=== PATIENT | female | born 1995 | race Caucasian/White ===

== ENCOUNTER → 2016-12-08 | Outpatient (CLI) | payer OTHER ==
[~2016-12-08] MED LIST: ORPH100T2 PO; SERT100T12 PO
--- NOTE | 2016-12-09 08:17 | DI ---
Indication: ITS.REASON: M54.9 PROCEDURE: MRI LUMBAR SPINE W/O CONTRAST: Encounter: Initial Comparison: None Technique: Multiplanar multisequence MR imaging of the lumbar spine was performed without contrast. Findings: Alignment lumbar spine is mildly straightened. No acute fracture or subluxation. Bone marrow signal intensity is normal. Conus medullaris terminates normally at L1. The paraspinal soft tissues are within normal limits. Segmental analysis: L1-L2: Normal L2-L3: Normal L3-L4: Normal L4-L5: Disk desiccation with a small central protrusion and high intensity zone. Prior posterior decompression. No significant neural foraminal stenosis. Minimal degenerative facet change. L5-S1: Annular tear with a high intensity zone. No central canal stenosis. Minimal central bulging. No neural foraminal stenosis. Impression: Prior surgery with small annular tears in the disks at L4-L5 and L5-S1. .
== END ==
LOC: IMA 16:26
PROVIDERS: ATTEND Family Medicine
DX: M51.36 Other intervertebral disc degeneration, lumbar region (principal); M51.37 Other intervertebral disc degeneration, lumbosacral region; Z98.890 Other specified postprocedural states; M54.9 Dorsalgia, unspecified

== ENCOUNTER 2017-11-03 07:11 | Inpatient (IN) ==
[2017-11-03] MEDS ORDERED: CITRIC ACID/SODIUM CITRATE 30ml PO ONE (07:34)
[2017-11-03] MEDS ORDERED: CEFAZOLIN PREMIX (MC ONLY) 2 GM/50 ML BAG IV ONE (07:34)
[2017-11-03] MEDS ORDERED: NOZIN NASAL SWAB NAS ONE (07:34)
[2017-11-03] MEDS ORDERED: FAMOTIDINE PB 20 MG/50 ML BAG IV ONE (07:34)
[2017-11-03] MEDS ORDERED: SALINE FLUSH 10ml SYRINGE ONE (07:52)
[2017-11-03] MEDS ORDERED: EPHEDRINE 50mg/ml INJECTION ONE (07:52)
[2017-11-03] MEDS ORDERED: FentaNYL 100 MCG/2 ML INJECTION ONE (07:54)
[2017-11-03] MEDS ORDERED: AZITHROMYCIN IV 500 MG in NS 250ml 250 ML IV ONE (08:00)
[2017-11-03] MEDS: LR 1,000 ML IV SCH ×3 (08:10→12:55)
[2017-11-03 08:17] VITALS: BMI 28.1
[2017-11-03] MEDS ORDERED: ONDANSETRON 4 MG/2 ML INJECTION IVP PRN (08:53)
[2017-11-03] MEDS ORDERED: DiphenhydrAMINE 50 MG/ML INJECTION IVP PRN (08:53)
[2017-11-03] MEDS ORDERED: NALBUPHINE 10 MG/ML INJECTION IVP PRN (08:53)
[2017-11-03] MEDS ORDERED: NALOXONE 2 MG/2 ML INJECTION PFS IVP PRN (08:53)
--- NOTE | 2017-11-03 08:53 | Anesthesia Preoperative Report ---
Anesthesia Epidural/Spinal Rec - Date and Time Date: 11/03/17 Preoperative Diagnosis: previous c section Procedure: Plan: Spinal - Vital Signs Vital Signs: Temperature 98.0 F 11/03/17 08:27 Pulse Rate 94 11/03/17 08:27 Respiratory Rate 16 11/03/17 08:27 Blood Pressure 118/64 11/03/17 08:27 Pulse Oximetry 100 11/03/17 08:27 /Para: P:1 - Medictaions & Allergies Inpatient Medications: Current Medications Lactated Ringer's (Lactated Ringers) 1,000 mls @ 999 mls/hr IV .Q1H1M MAR Last Admin: 11/03/17 08:10 Dose: 999 mls/hr Azithromycin 500 mg/ Sodium (Chloride) 250 mls @ 250 mls/hr IV O ONE Stop: 11/03/17 08:59 Allergies/Adverse Reactions: Allergies Allergy/AdvReac Type Severity Reaction Status Date / Time diazepam Allergy Unknown DEPRESSED Verified 05/05/17 21:28 MOOD latex Allergy Unknown RASH TO Verified 05/05/17 21:28 HANDS - Home Medications Home Medications: Home Medications Medication Instructions Recorded Confirmed Type Acetaminophen [Tylenol] 650 mg Q6H PRN 05/06/17 11/03/17 History DiphenhydrAMINE [Benadryl] 1 cap PO Q4H PRN 05/06/17 11/03/17 History Vit No.124/Iron/Folic 1 each PO DAILY 05/06/17 11/03/17 History [ Vitamin Tablet] - Medical History Respiratory: Reports: Asthma (not recently), Pneumonia (walking pneumonia) DENIES: Sleep Apnea Neuro/Musculoskeletal: Reports: Back Problems, Depression (bipolar) Other History: Reports: Now, Other (14 weeks ) - Surgical History HEENT Surgeries: Reports: Ear Surgery (tubes) GI Surgery/Treatments: Reports: Appendectomy (2nd trimester this ) Surgery/Treatment: REPORT: Other (Kidney infection) Musculoskeletal Surgery/Tx: Reports: Orthopedic Surgery (laminectomy, dysectomy) Reproductive Surgery/Treatment: Reports: Section Hx Family Anesthesia Reaction: No - Social History Smoking Status: Former smoker (quit 1 month ago) Packs per day: 1 Pack-years: 5 Time spent discussing smoking cessation with patient: 3 to 10 minutes Substance Use Type: does not use Alcohol Intake Frequency: does not drink Hx Chewing Tobacco Use: No - Pertinent Findings Lab Data: CBC and BMP 11/03/17 07:54 - Physical Exam Respiratory Exam: lungs clear Cardiovascular Exam: regular rate and rhythm, no murmur - Airway Assessment Mallampati Score: II TMD: 3 Fingerbreadths Neck Extension: good Overall Assessment: no airway concerns - ASA ASA Score: 2 - Discussion Discussion: Discussed risks/options/alternatives of anesthesia and questions answered. Patient consents. Nursing pain assessment noted. Anesthesia Discussion: spouse Attestation Statement: Prior to the delivery of any anesthetic medication, I examined the patient, developed the plan, obtained the patient's consent and discussed the risk and benefits of the procedure with the patient/guardian.
[2017-11-03] MEDS ORDERED: OXYTOCIN BOLUS BAG 30 UNIT/500 ML ML IV SCH (10:00)
[2017-11-03] MEDS ORDERED: RHOPHYLAC - PHARMACY CONSULT MC ONE (10:46)
[2017-11-03] MEDS ORDERED: DiphenhydrAMINE 25 MG CAPSULE PO PRN (10:46)
[2017-11-03] MEDS ORDERED: HYDROCORTISONE 2.5% CREAM 30gm RECTALLY PRN (10:46)
[2017-11-03] MEDS ORDERED: CALCIUM CARBONATE Chewable 500mg TABLET PO PRN (10:46)
[2017-11-03] MEDS ORDERED: OXYTOCIN DRIP 30 UNIT/500 ML ML IV SCH (10:46)
[2017-11-03] MEDS ORDERED: SIMETHICONE 80 MG CHEWABLE TABLET PO PRN (10:46)
[2017-11-03] MEDS ORDERED: ACETAMINOPHEN 500 MG TABLET PO PRN (10:46)
[2017-11-03] MEDS: D5LR 1,000 ML IV SCH ×2 (10:48→22:59)
[2017-11-03] MEDS: IBUPROFEN 800 MG TABLET PO SCH ×4 (12:54→23:17)
[2017-11-03] MEDS: HYDROCODONE/APAP 5mg/325mg TABLET PO PRN ×2 (14:12→20:16)
[2017-11-03] MEDS: SIMETHICONE 80 MG CHEWABLE TABLET PO SCH ×3 (14:12→22:59)
--- NOTE | 2017-11-03 14:13 | Operative Note ---
DATE OF OPERATION 11/03/2017 PREOPERATIVE DIAGNOSIS Term , repeat elective . POSTOPERATIVE DIAGNOSIS Term , repeat elective . PROCEDURE Repeat low transverse section. SURGEON Hilda Dey MD STRADDLE BUG OPERATOR Ryan Edmond, Molecular Biologist ANESTHESIA Spinal, epidural anesthesia EBL 700 mL DESCRIPTION OF PROCEDURE Ms. Balderrama was brought to the OR and given regional analgesia to good effect. She initially had a spinal placed, however, we were not able to obtain symmetric bilateral levels so then the control operator flow coat placed an epidural and this was raised to good surgical levels. She was then placed on the OR table in a supine position with left lateral displacement. A Lainez catheter was placed to dependent drain. The abdomen was prepped and draped in the usual sterile fashion. We made a Pfannenstiel incision through the patient's prior scar. This was carried down to fascia. Fascia was incised transversely. Fascia was then tented up. This was bluntly and sharply dissected free of rectus muscles. Rectus muscles were bluntly divided. Peritoneum was tented up and entered sharply. This was extended vertically. The bladder blade was then inserted. The bladder was noted to be well below our area of operation. A low transverse uterine incision was made with a sharp knife. There was clear amniotic fluid. Baby was delivered in vertex presentation without any difficulty. Baby was bulb suctioned on the abdomen. Cord was doubly clamped and cut and the baby was given to the pediatric team for care. This is a liveborn female with Apgars of 9/9. She weighed 8 pounds and 0.4 ounces. The placenta was not forthcoming, so it was then manually removed intact. It had a normal configuration and normal-appearing three-vessel cord. The uterine cavity was swept clear of membranes and the uterus exteriorized. We then reapproximated the myometrial cavity with a running locking 0 Monocryl. There was a small extension on the right side of the incision that continued to bleed. This was then oversewn with a running locking 0 Monocryl. Hemostasis at this point was under good control. Uterus, tubes and ovaries were noted to be grossly normal and returned the abdominal cavity. We reinspected at each level for hemostasis , making sure it remained under good control throughout the procedure. We then reapproximated peritoneum with a running nonlocking 2-0 Vicryl. Fascia was reapproximated with running nonlocking 0 Vicryl. Skin edges were reapproximated with subcuticular style 3-0 undyed Vicryl. The wound was dressed with Steri-Strips and sterile dressing. Counts were correct postoperatively x2. The urine remained clear and free-flowing throughout the procedure. Ms. Balderrama was then transferred to recovery in stable condition. GAURAV
--- NOTE | 2017-11-03 16:47 | Anesthesia Postoperative Note ---
- Date and Time Date: 11/03/17 Time: 16:47 - Status Patient Participated in Evaluation: Patient Participated in Person Vital Signs: Temperature 98.4 F 11/03/17 15:12 Pulse Rate 88 11/03/17 15:12 Respiratory Rate 16 11/03/17 15:12 Blood Pressure 110/54 11/03/17 15:12 Pulse Oximetry 100 11/03/17 15:12 Respiratory Function: Airway Patent Cardiovascular Function: Regular Pulse Mental Status: Alert and Oriented Pain Intensity: 0 Hydration: Taking PO Fluids Complications During Recover: None Apparent - Follow-Up Instructions Instructions: Per Surgeon
[2017-11-04] MEDS: HYDROCODONE/APAP 5mg/325mg TABLET PO PRN ×5 (01:28→18:35)
--- NOTE | 2017-11-04 08:20 | OB/GYN Progress Note ---
OB-PP Progress Note - General PPD1 Maternal Group B Strep: Positive Maternal blood type: O- Maternal Rubella Status: Immune - Subjective Date: 11/04/17 Lochia: Minimal Pain: controlled Voiding: voiding Nausea or Vomiting Present: No - Objective Vital Signs: Last Vital Signs Temp 97.8 F 11/04/17 05:00 Pulse 80 11/04/17 05:00 Resp 18 11/04/17 05:00 BP 108/58 11/04/17 05:00 Pulse Ox 98 11/04/17 05:00 General: alert and oriented Abdomen: fundus firm, non-tender Incision: dry, dressed Extremities: non-tender Edema: none Laboratory: Laboratory Results - last 24 hr 11/03/17 11/03/17 11/03/17 07:54 14:00 18:17 WBC 15.0 H D RBC 3.65 L Hgb 11.1 L Hct 33.4 L MCV 91.5 MCH 30.4 MCHC 33.2 RDW Std Deviation 40.9 Plt Count 188 MPV 9.4 Hgb /Adult Ratio 0.0016 Blood Type O Negative Antibody Screen Positive A* Antibody Identification Immune D RhIG Candidate? Is a candidate - Assessment Assessment: SP, Repeat C/S Comments: Resume UTI coverage. - Plan Plan: routine care
[2017-11-04] MEDS: IBUPROFEN 800 MG TABLET PO SCH ×3 (09:32→17:32)
[2017-11-04] MEDS: DOCUSATE CALCIUM 240 MG CAPSULE PO SCH (09:32)
[2017-11-04] MEDS: SIMETHICONE 80 MG CHEWABLE TABLET PO SCH ×4 (09:33→21:15)
[2017-11-04] MEDS ORDERED: RHO(D) IMMUNE GLOBULIN 300 MCG/2 ML INJECTION IVP ONE (11:30)
[2017-11-04] MEDS: D5LR 1,000 ML IV SCH (12:39)
[2017-11-04] MEDS: NITROFURANTOIN (MACROBID) 100 MG CAPSULE PO SCH ×3 (14:13→21:15)
[2017-11-04 17:53] VITALS: RESP 16
[2017-11-05] MEDS: HYDROCODONE/APAP 5mg/325mg TABLET PO PRN ×2 (00:36→10:03)
[2017-11-05] MEDS: D5LR 1,000 ML IV SCH ×2 (00:48→04:26)
[2017-11-05] MEDS: IBUPROFEN 800 MG TABLET PO SCH ×2 (00:49→04:29)
[2017-11-05 04:32] VITALS: BP 113/59; PULSE 84; TEMP 98.1; O2SAT 100
[2017-11-05] MEDS: NITROFURANTOIN (MACROBID) 100 MG CAPSULE PO SCH (08:53)
[2017-11-05] MEDS: SIMETHICONE 80 MG CHEWABLE TABLET PO SCH (08:54)
[2017-11-05] MEDS: DOCUSATE CALCIUM 240 MG CAPSULE PO SCH (08:55)
== END 2017-11-05 10:35 | disposition home or self-care (01) | DRG 766 ==
LOC: NMC.PERIOP 07:11
PROVIDERS: ADMIT Obstetrics & Gynecology; ATTEND Obstetrics & Gynecology